=== PATIENT | female | born 1985 ===

== ENCOUNTER 2016-12-19 14:38 | Emergency (ER) | payer OTHER ==
[2016-12-19 14:44] VITALS: BP 124/83; PULSE 67; RESP 16; TEMP 98; O2SAT 100
--- NOTE | 2016-12-19 15:26 | RAD ---
PROCEDURE: Radiographs of the Left Shoulder HISTORY: pain COMPARISON: No prior. FINDINGS: BONES: Normal. No fracture. JOINTS: Normal. Glenohumeral and acromioclavicular joints preserved. No osteoarthritis. SOFT TISSUES: Normal. OTHER FINDINGS: None. IMPRESSION: Normal radiographs of the left shoulder.
--- NOTE | 2016-12-19 15:36 | ED PDOC ---
Upper Extremity Pain/Injury Time Seen by Provider: 12/19/16 15:04 Chief Complaint (Nursing): Upper Extremity Problem/Injury Chief Complaint (Provider): Upper Extremity Problem History Per: Patient History/Exam Limitations: no limitations Onset/Duration Of Symptoms: Gradual, Persistent, Worse Since (x1 week), Other ( x2 months) Current Symptoms Are (Timing): Still Present Additional Complaint(s): 31 year old female presents to ED with complaints of atraumatic left shoulder pain x2 months and has no past medical history. Patient notes that pain has worsened considerably in the last week. (+) numbness radiating down left arm. (- ) weakness, chest pain, or rash. Patient notes pain with movement, specificlaly when attempting to move left arm above head. PCP: None Past Medical History Reviewed: Historical Data, Nursing Documentation, Vital Signs Vital Signs: Last Vital Signs Temp 98.0 F 12/19/16 14:41 Pulse 67 12/19/16 14:41 Resp 16 12/19/16 14:41 BP 124/83 12/19/16 14:41 Pulse Ox 100 12/19/16 14:41 - Medical History PMH: No Chronic Diseases - Surgical History Surgical History: No Surg Hx - Family History Family History: States: No Known Family Hx - Social History Current smoker - smoking cessation education provided: No Ex-Smoker (has not smoked in the last 12 months): No Alcohol: None Drugs: Denies - Home Medications Home Medications: Ambulatory Orders Medication Instructions Recorded Naproxen [Naprosyn] 500 mg PO BID PRN #20 tablet 08/29/15 Sulfamethoxazole/Trimethoprim 1 tab PO BID #14 tab 08/29/15 [Bactrim DS 800 mg-160 mg] Meloxicam [Mobic] 7.5 mg PO DAILY PRN #14 tab 12/19/16 - Allergies Allergies/Adverse Reactions: Allergies Allergy/AdvReac Type Severity Reaction Status Date / Time No Known Allergies Allergy Verified 12/19/16 14:41 Review of Systems ROS Statement: Except As Marked, All Systems Reviewed And Found Negative Cardiovascular: Negative for: Chest Pain Musculoskeletal: Positive for: Shoulder Pain (left shoulder) Skin: Negative for: Rash Neurological: Positive for: Numbness (radiates down left arm). Negative for: Weakness Physical Exam - Reviewed Nursing Documentation Reviewed: Yes Vital Signs Reviewed: Yes - Physical Exam Appears: Positive for: Non-toxic, No Acute Distress Head Exam: Positive for: ATRAUMATIC, NORMOCEPHALIC Skin: Positive for: Normal Color, Warm, Dry. Negative for: Rash Eye Exam: Positive for: Normal appearance Respiratory: Negative for: Respiratory Distress Pulses-Radial (L): 2+ Pulses-Radial (R): 2+ Extremity: Positive for: Tenderness (mild left lateral shoulder tenderness), Capillary Refill (<2 seconds). Negative for: Deformity Neurologic/Psych: Positive for: Alert, Oriented. Negative for: Motor/Sensory Deficits (equal bilateral real estate officer strength) - ECG O2 Sat by Pulse Oximetry: 100 (RA) Pulse Ox Interpretation: Normal Medical Decision Making Medical Decision Makin Initial impression: shoulder pain Initial plan: * XR SHOULDER LEFT 1525 XR FINDINGS BONES: Normal. No fracture. JOINTS: Normal. Glenohumeral and acromioclavicular joints preserved. No osteoarthritis. SOFT TISSUES: Normal. OTHER FINDINGS: None. IMPRESSION: Normal radiographs of the left shoulder. 1534 Findings discussed with patient. Patient is instructed to follow up with ortho. Patient is stable for discharge home. Scribe Attestation: Documented by Maude Infante, acting as a scribe for Mello Seymour PA-C. Provider Scribe Attestation: All medical record entries made by the Scribe were at my direction and personally dictated by me. I have reviewed the chart and agree that the record accurately reflects my personal performance of the history, physical exam, medical decision making, and the department course for this patient. I have also personally directed, reviewed, and agree with the discharge instructions and disposition. Disposition - Clinical Impression Clinical Impression: Shoulder pain - Patient ED Disposition Is Patient to be Admitted: No - Disposition Referrals: [facility] [Outside] [facility] [Outside] Disposition: Routine/Home Disposition Time: 15:40 Condition: STABLE Prescriptions: Meloxicam [Mobic] 7.5 mg PO DAILY PRN #14 tab PRN Reason: Pain, Mild (1-3) Instructions: Shoulder Pain (ED) Forms: [facility] ([place]) Print Language: DIVEHI
== END 2016-12-19 16:24 | disposition home or self-care (01) ==
LOC: H.ER 14:38
DX: M25.512 Pain in left shoulder (principal)